=== PATIENT | male | born 1995 | race Caucasian/White ===

== ENCOUNTER 2021-02-22 06:46 | Emergency (ER) | payer MEDICAID ==
[~2021-02-22] VITALS: Ht 190.5 cm; Wt 118.0 kg
[2021-02-22] MEDS ORDERED: SODIUM CHLORIDE 0.9% 1,000 ML IV ONE (07:00)
[2021-02-22] MEDS ORDERED: NALOXONE HCL 1 MG/ML 2ML VIAL IV ONE (07:00)
[2021-02-22 08:40] LABS: BASOPHILS % 0.5 % (0.0-2.0); EOSINOPHILS % 0.7 % (0.0-5.0); HEMATOCRIT. 40.2 % (42.0-52.0); HEMOGLOBIN. 13.7 g/dL (14.0-18.0); LYMPHOCYTES % 39.6 % (20.0-50.0); MEAN CORPUSCULAR VOLUME 94.1 fL (80.0-94.0); MEAN PLATELET VOLUME 8.8 fl (7.4-10.4); MONOCYTES % 7.4 % (2.0-8.0); NEUTROPHILS % 51.8 % (40.0-76.0); PLATELET 201 x1000/uL (130-400); RED BLOOD CELL COUNT 4.28 mill/uL (4.7-6.1); RED CELL DISTRIBUTION WIDTH 14.1 % (11.6-14.6)
[2021-02-22 08:45] LABS: PROTHROMBIN TIME 10.4 sec (9.6-11.0)
[2021-02-22 08:49] LABS: CHLORIDE 105 mEq/L (98-107)
[2021-02-22 08:55] LABS: ETHANOL BLOOD < 10 mg/dL
[2021-02-22 10:19] LABS: CLARITY URINE CLEAR (CLEAR); COLOR URINE YELLOW (YELLOW); KETONES URINE TRACE (NEGATIVE); LEUKOCYTE ESTERASE URINE NEGATIVE (NEGATIVE); NITRITE URINE NEGATIVE (NEGATIVE); OCCULT BLOOD URINE NEGATIVE (NEGATIVE); PH URINE 5.5 (4.5-8.0); PROTEIN URINE 1+ (NEGATIVE); SPECIFIC GRAVITY URINE 1.043 (1.005-1.030); UROBILINOGEN URINE 0.2 E.U./dL (0.2-1.0)
[2021-02-22 10:28] LABS: *BARBITURATES SCREEN URINE PRESUMTIVE POSITIVE (NEGATIVE)
[2021-02-22 10:29] LABS: *BENZODIAZEPINES SCREEN URINE PRESUMTIVE POSITIVE (NEGATIVE); *COCAINE SCREEN URINE NEGATIVE (NEGATIVE); CANNABINOID URINE SCREEN PRESUMTIVE POSITIVE (NEGATIVE); METHADONE URINE SCREEN NEGATIVE (NEGATIVE); OPIATES URINE SCREEN PRESUMTIVE POSITIVE (NEGATIVE); PHENCYCLIDINE URINE SCREEN NEGATIVE (NEGATIVE)
[2021-02-22 10:30] LABS: *AMPHETAMINES SCREEN URINE NEGATIVE (NEGATIVE)
[2021-02-22] MEDS ORDERED: ACETAMINOPHEN 325MG TABLET PO ONE (12:45)
[2021-02-22 14:00] VITALS: BP 138/80
== END 2021-02-22 14:23 | disposition home or self-care (01) ==
LOC: ER 06:46
DX: R41.82 Altered mental status, unspecified (principal); R41.0 Disorientation, unspecified; R53.83 Other fatigue; R47.81 Slurred speech; I10 Essential (primary) hypertension; F16.10 Hallucinogen abuse, uncomplicated; F12.10 Cannabis abuse, uncomplicated; F11.10 Opioid abuse, uncomplicated
CPT/HCPCS: 36415; 70450; 71045; 73090; 80053; 80305; 80307; 80320; 80329; 81003; 82140; 84484; 85025; 85610; 93005; 99285; J7030; Z7610; G0480

== ENCOUNTER 2021-02-22 15:53 | Emergency (ER) | payer MEDICAID ==
[~2021-02-22] VITALS: Ht 182.9 cm; Wt 160.0 kg
[2021-02-22] MEDS ORDERED: SODIUM CHLORIDE 0.9% 1,000 ML IV ONE (16:30)
[2021-02-22] MEDS ORDERED: LORAZEPAM 2MG/ML CPJ IV ONE ×3 (18:15→23:45)
[2021-02-22 18:24] LABS: BASOPHILS % 0.6 % (0.0-2.0); EOSINOPHILS % 0.5 % (0.0-5.0); HEMATOCRIT. 40.8 % (42.0-52.0); HEMOGLOBIN. 14.2 g/dL (14.0-18.0); LYMPHOCYTES % 29.5 % (20.0-50.0); MEAN CORPUSCULAR HEMOGLOBIN 32.5 pg (28.0-32.0); MEAN CORPUSCULAR VOLUME 93.6 fL (80.0-94.0); MEAN PLATELET VOLUME 8.9 fl (7.4-10.4); MONOCYTES % 6.8 % (2.0-8.0); NEUTROPHILS % 62.6 % (40.0-76.0); PLATELET 217 x1000/uL (130-400); RED BLOOD CELL COUNT 4.36 mill/uL (4.7-6.1); RED CELL DISTRIBUTION WIDTH 14.6 % (11.6-14.6)
[2021-02-22 18:48] LABS: CHLORIDE 106 mEq/L (98-107)
[2021-02-22 18:57] LABS: ETHANOL BLOOD < 10 mg/dL
[2021-02-22] MEDS ORDERED: DIPHENHYDRAMINE 50MG/ML VIAL IM STA (22:54)
[2021-02-22] MEDS ORDERED: VALPROATE SODIUM 500 MG in SODIUM CHLORIDE 0.9% 100 ML IV STA (22:58)
[2021-02-22] MEDS ORDERED: PHENOBARBITAL 100MG TABLET PO ONE (23:00)
[2021-02-22] MEDS ORDERED: OLANZAPINE 10 MG/VIAL IM ONE (23:00)
[2021-02-22] MEDS ORDERED: PHENOBARBITAL SODIUM 65MG/ML 1ML IV ONE (23:00)
[2021-02-22] MEDS ORDERED: DIVALPROEX SODIUM 500MG ER TABLET PO SCH (23:00)
[2021-02-22 23:30] LABS: PHENOBARBITAL 32.5 ug/mL (15.0-40.0)
[2021-02-22] MEDS ORDERED: DIPHENHYDRAMINE 50MG/ML VIAL IV ONE (23:45)
[2021-02-23] MEDS ORDERED: ZIPRASIDONE MESYLATE 20MG/VIAL IM ONE ×2 (02:45→04:30)
[2021-02-23] MEDS ORDERED: LORAZEPAM 2MG/ML CPJ IV ONE (04:30)
[2021-02-23] MEDS ORDERED: ACETAMINOPHEN WITH CODEINE 300/30MG TABLET PO ONE (10:30)
[2021-02-23 15:59] VITALS: BP 152/70
== END 2021-02-23 16:13 | disposition home or self-care (01) ==
LOC: ER 15:53
DX: T50.7X2A Poisoning by analeptics and opioid receptor antagonists, intentional self-harm, initial encounter (principal); F91.8 Other conduct disorders; S52.692A Other fracture of lower end of left ulna, initial encounter for closed fracture; Y93.89 Activity, other specified; Y04.2XXA Assault by strike against or bumped into by another person, initial encounter; Y92.198 Other place in other specified residential institution as the place of occurrence of the external cause; Z78.1 Physical restraint status; R45.850 Homicidal ideations; F15.10 Other stimulant abuse, uncomplicated; F16.10 Hallucinogen abuse, uncomplicated; F12.10 Cannabis abuse, uncomplicated; F22 Delusional disorders; I10 Essential (primary) hypertension; G40.909 Epilepsy, unspecified, not intractable, without status epilepticus; F90.9 Attention-deficit hyperactivity disorder, unspecified type; Z75.1 Person awaiting admission to adequate facility elsewhere
CPT/HCPCS: 36415; 80053; 80165; 80184; 80307; 80320; 80329; 85025; 93005; 96372; 96374; 96375; 96376; 99285; J1200; J2060; J2560; J3486; J3490; J7030; J7050; 80305; G0480